=== PATIENT | female | born 1995 | race Caucasian/White ===

== ENCOUNTER 2016-06-18 09:44 | Emergency (ER) | payer OTHER ==
[2016-06-18] MEDS ORDERED: KETOROLAC 60 MG/2 ML VIAL IM STA (10:53)
--- NOTE | 2016-06-18 10:57 | ED ---
General Adult HPI - General Chief complaint: Recheck/Abnormal Lab/Rx Stated complaint: Pacemaker Issue Time Seen by Provider: 06/18/16 09:50 Source: patient, RN notes reviewed Mode of arrival: ambulatory Limitations: no limitations - History of Present Illness Initial comments: This is a 21-year-old female who presents emergency Department complaining of pain over her pacemaker. Patient states started 3 days ago and it's very sore to touch and it hurts when she moves her arm. Patient denies any anterior chest pain patient denies shortness of breath or difficulty breathing. Patient denies any palpations. Patient denies any headache patient denies numbness weakness per patient denies any redness to the her patient denies any arm swelling. Patient denies any recent fever or chills. - Related Data Home Medications Medication Instructions Recorded Confirmed Albuterol Inhaler [Ventolin Hfa 1 puff INHALATION RT-Q4H PRN 05/11/15 06/18/16 Inhaler] Albuterol Nebulized [Ventolin 2.5 mg INHALATION RT-Q6H PRN 05/11/15 06/18/16 Nebulized] Montelukast Sodium [Singulair] 10 mg PO HS 05/11/15 06/18/16 Mometasone/Formoterol [Dulera 100 2 puff INHALATION RT-BID 06/18/16 06/18/16 Mcg/5 Mcg Inhaler] Allergies Allergy/AdvReac Type Severity Reaction Status Date / Time peanut Allergy Anaphylaxis Verified 06/18/16 10:30 penicillinase [Penicillinase] Allergy Unknown Verified 06/18/16 10:30 Penicillins Allergy Unknown Verified 06/18/16 10:30 Review of Systems ROS Statement: Those systems with pertinent positive or pertinent negative responses have been documented in the HPI. ROS Other: All systems not noted in ROS Statement are negative. Past Medical History Past Medical History: Asthma, GERD/Reflux Additional Past Medical History / Comment(s): congential av blockage History of Any Multi-Drug Resistant Organisms: None Reported Past Surgical History: Adenoidectomy, Pacemaker, Tonsillectomy Additional Past Surgical History / Comment(s): mole removal Past Anesthesia/Blood Transfusion Reactions: No Reported Reaction Additional Past Anesthesia/Blood Transfusion Reaction / Comment(s): UNKNOWN FAMILY ANESTHESIA HX Past Psychological History: No Psychological Hx Reported Smoking Status: Current every day smoker Past Alcohol Use History: Occasional Additional Past Alcohol Use History / Comment(s): STARTED SMOKING AT AGE 16- SMOKE APPROX 4-5 CIG. PER DAY Past Drug Use History: Marijuana - Past Family History Mother Family Medical History: No Reported History Father Family Medical History: Hypertension General Exam - General Exam Comments Initial Comments: GENERAL: Patient is well-developed and well-nourished. Patient is nontoxic and well- hydrated and is in no acute distress. ENT: Neck is soft and supple. No significant lymphadenopathy is noted. Oropharynx is clear. Moist mucous membranes. EYES: The sclera were anicteric and conjunctiva were pink and moist. Extraocular movements were intact and pupils were equal round and reactive to light. Eyelids were unremarkable. PULMONARY: Unlabored respirations. Good breath sounds bilaterally. No audible rales rhonchi or wheezing was noted. CARDIOVASCULAR: There is a regular rate and rhythm without any murmurs gallops or rubs. Pacemaker site is not red but it is tender to palpation patient states this is the pain she came in for ABDOMEN: Soft and nontender with normal bowel sounds. No palpable organomegaly was noted. There is no palpable pulsatile mass. SKIN: Skin is clear with no lesions or rashes and otherwise unremarkable. NEUROLOGIC: Patient is alert and oriented x3. Cranial nerves II through XII are grossly intact. Motor and sensory are also intact. Normal speech, volume and content. Symmetrical smile. MUSCULOSKELETAL: Normal extremities with adequate strength and full range of motion. No lower extremity swelling or edema. No calf tenderness. LYMPHATICS: No significant lymphadenopathy is noted PSYCHIATRIC: Normal psychiatric evaluation. Limitations: no limitations Course Vital Signs 06/18/16 06/18/16 06/18/16 09:47 10:18 11:14 Temperature 97.3 F L Pulse Rate 88 64 Pulse Rate [ 75 Supine Apical] Respiratory 18 16 Rate Blood Pressure 119/65 102/60 O2 Sat by Pulse 98 99 Oximetry Medical Decision Making - Medical Decision Making EKG shows atrial sensed ventricular paced rhythm at 85 beats a minute GA interval is 128 QRS is 142 QT interval 446 QTC is 530. I spoke with Dr. Mcclelland he wanted the patient to have a chest x-ray a CBC and follow-up with him tomorrow in the office. Patient already has an appointment for tomorrow. Patient's chest x-ray showed no acute normalities. - Lab Data Result diagrams: 06/18/16 11:00 Lab Results 06/18/16 Range/Units 11:00 WBC 3.9 (3.8-10.6) k/uL RBC 4.78 (3.80-5.40) m/uL Hgb 14.4 (11.4-16.0) gm/dL Hct 43.0 (34.0-46.0) % MCV 89.9 (80.0-100.0) fL MCH 30.0 (25.0-35.0) pg MCHC 33.4 (31.0-37.0) g/dL RDW 12.3 (11.5-15.5) % Plt Count 141 L (150-450) k/uL Neutrophils % 41 % Lymphocytes % 41 % Monocytes % 7 % Eosinophils % 9 % Basophils % 1 % Neutrophils # 1.6 (1.3-7.7) k/uL Lymphocytes # 1.6 (1.0-4.8) k/uL Monocytes # 0.3 (0-1.0) k/uL Eosinophils # 0.4 (0-0.7) k/uL Basophils # 0.0 (0-0.2) k/uL Disposition Clinical Impression: Pain in pacemaker pocket Disposition: HOME SELF-CARE Condition: Good Additional Instructions: Patient should take Motrin 600 mg every 6 hours. Patient should follow-up with Dr. Mcclelland tomorrow . Time of Disposition: 11:47
[2016-06-18 11:14] LABS: Basophils % (A) 1 %; CH 30.6; CHCM 34.1; Eosinophils # (A) 0.4 k/uL (0-0.7); Eosinophils % (A) 9 %; HDW 2.11; HGB 14.4 gm/dL (11.4-16.0); Luc # (Auto) 0.07; Luc % (Auto) 2; Lymphocytes # (A) 1.6 k/uL (1.0-4.8); Lymphocytes % (A) 41 %; MCHC 33.4 g/dL (31.0-37.0); MCV 89.9 fL (80.0-100.0); Mean Platelet Volume 8.6; Monocytes # (A) 0.3 k/uL (0-1.0); Monocytes % (A) 7 %; Neutrophils # (A) 1.6 k/uL (1.3-7.7); Neutrophils % (A) 41 %; RBC 4.78 m/uL (3.80-5.40); RDW 12.3 % (11.5-15.5); WBC 3.9 k/uL (3.8-10.6); WBC (Perox) 3.82
[2016-06-18 11:15] VITALS: RESP 16
--- NOTE | 2016-06-18 11:17 | XR ---
EXAMINATION TYPE: XR chest 2V DATE OF EXAM: 06/18/2016 11:13 AM COMPARISON: Chest x-ray February 18, 2016. HISTORY: Chest pain today. TECHNIQUE: Frontal and lateral views of the chest are obtained. FINDINGS: There is no focal air space opacity, pleural effusion, or pneumothorax seen. The cardiac silhouette size is within normal limits. There is multilevel pacemaker present. S-shaped scoliosis is redemonstrated. IMPRESSION: No acute cardiopulmonary process. No significant change from prior.
[2016-06-18 11:55] VITALS: BP 97/60; PULSE 74; TEMP 97.1
== END 2016-06-18 11:55 | disposition home or self-care (01) ==
LOC: EC 09:44
DX: T82.847A Pain due to cardiac prosthetic devices, implants and grafts, initial encounter (principal); F17.210 Nicotine dependence, cigarettes, uncomplicated; Z88.0 Allergy status to penicillin; Z91.010 Allergy to peanuts; Z79.899 Other long term (current) drug therapy; J45.909 Unspecified asthma, uncomplicated
CPT/HCPCS: 99284; 96372; 36415; 93005; 85025; 71020; J1885

== ENCOUNTER 2016-09-27 20:22 | Emergency (ER) | payer OTHER ==
[2016-09-27 21:12] VITALS: RESP 16
--- NOTE | 2016-09-27 21:23 | ED ---
Chest Pain HPI - General Chief Complaint: Chest Pain Stated Complaint: Chest Pain- Sent by Med Exp Time Seen by Provider: 09/27/16 20:38 Source: patient Mode of arrival: wheelchair Limitations: no limitations - History of Present Illness Initial Comments: This patient is a 21-year-old woman who presents with complaint that she had onset of substernal and epigastric chest pain about 3 days ago while she was working at [employer]. She states the pain has been constant, she has not found any worsening or relieving factors, he has been severe since it started. Patient has not had any associated symptoms other than she noted some tingling of her left arm and hand. Patient denies diaphoresis, dyspnea, nausea or vomiting, palpitations, lightheadedness or syncope. MD Complaint: chest pain Onset/Timin -: days(s) Onset: other (While at work) Pain Location: substernal Pain Radiation: none Severity: severe Quality: tightness, aching Consistency: constant Improves With: nothing Worsens With: nothing Treatments Prior to Arrival: none - Related Data Home Medications Medication Instructions Recorded Confirmed Albuterol Inhaler [Ventolin Hfa 1 puff INHALATION RT-Q4H PRN 05/11/15 09/27/16 Inhaler] Albuterol Nebulized [Ventolin 2.5 mg INHALATION RT-Q6H PRN 05/11/15 09/27/16 Nebulized] Montelukast Sodium [Singulair] 10 mg PO DAILY 05/11/15 09/27/16 Ibuprofen [Motrin] 600 mg PO BID PRN 09/27/16 09/27/16 Allergies Allergy/AdvReac Type Severity Reaction Status Date / Time peanut Allergy Anaphylaxis Verified 09/27/16 20:40 Penicillins Allergy Anaphylaxis Verified 09/27/16 20:40 Review of Systems ROS Statement: Those systems with pertinent positive or pertinent negative responses have been documented in the HPI. ROS Other: All systems not noted in ROS Statement are negative. Constitutional: Denies: fever, chills Respiratory: Denies: cough, dyspnea Cardiovascular: Reports: as per HPI, chest pain. Denies: palpitations, edema, syncope Gastrointestinal: Denies: abdominal pain, nausea, vomiting Genitourinary: Denies: dysuria, hematuria Musculoskeletal: Denies: back pain Skin: Denies: rash Neurological: Denies: headache, weakness, numbness EKG Findings - EKG Comments: EKG Findings:: Twelve-lead EKG shows an atrial sensed, ventricular paced rhythm at a rate of 70 BPM. - EKG Results: EKG: normal axis, normal QRS, normal ST/T Past Medical History Past Medical History: Asthma, GERD/Reflux Additional Past Medical History / Comment(s): congential av blockage History of Any Multi-Drug Resistant Organisms: None Reported Past Surgical History: Adenoidectomy, Pacemaker, Tonsillectomy Additional Past Surgical History / Comment(s): mole removal Past Anesthesia/Blood Transfusion Reactions: No Reported Reaction Additional Past Anesthesia/Blood Transfusion Reaction / Comment(s): UNKNOWN FAMILY ANESTHESIA HX Past Psychological History: No Psychological Hx Reported Smoking Status: Current every day smoker Past Alcohol Use History: Occasional Additional Past Alcohol Use History / Comment(s): STARTED SMOKING AT AGE 16- SMOKE APPROX 4-5 CIG. PER DAY Past Drug Use History: Marijuana - Past Family History Mother Family Medical History: No Reported History Father Family Medical History: Hypertension General Exam Limitations: no limitations General appearance: alert, in no apparent distress Head exam: Present: atraumatic, normocephalic, normal inspection Eye exam: Present: normal appearance. Absent: scleral icterus, conjunctival injection ENT exam: Present: normal oropharynx Neck exam: Present: normal inspection, full ROM Respiratory exam: Present: normal lung sounds bilaterally. Absent: respiratory distress, wheezes, rales, rhonchi, stridor Cardiovascular Exam: Present: regular rate, normal rhythm, normal heart sounds. Absent: systolic murmur, diastolic murmur, rubs, gallop GI/Abdominal exam: Present: soft. Absent: distended, tenderness, guarding, rebound, mass Extremities exam: Present: normal inspection, normal capillary refill. Absent: pedal edema, calf tenderness Back exam: Present: normal inspection. Absent: CVA tenderness (R), CVA tenderness (L) Neurological exam: Present: alert Skin exam: Present: warm, dry, intact, normal color. Absent: rash Course Vital Signs 09/27/16 09/27/16 20:31 20:51 Temperature 97.8 F Pulse Rate 74 73 Respiratory 18 16 Rate Blood Pressure 121/64 114/64 O2 Sat by Pulse 99 97 Oximetry Disposition Clinical Impression: Chest pain Disposition: HOME SELF-CARE Condition: Good Instructions: Chest Pain (ED) Referrals: Ricardo Ford MD [Primary Care Provider] - 1-2 days Joanne Swanson MD [STAFF PHYSICIAN] - 1-2 days
[2016-09-27 21:34] LABS: Basophils % (A) 1 %; CHCM 35.3; Eosinophils # (A) 0.5 k/uL (0-0.7); Eosinophils % (A) 8 %; HDW 2.34; HGB 14.6 gm/dL (11.4-16.0); Luc # (Auto) 0.17; Luc % (Auto) 3; Lymphocytes # (A) 2.6 k/uL (1.0-4.8); Lymphocytes % (A) 42 %; MCH 31.4 pg (25.0-35.0); MCHC 35.6 g/dL (31.0-37.0); MCV 88.2 fL (80.0-100.0); Monocytes # (A) 0.4 k/uL (0-1.0); Monocytes % (A) 7 %; Neutrophils # (A) 2.5 k/uL (1.3-7.7); Neutrophils % (A) 40 %; RBC 4.65 m/uL (3.80-5.40); RDW 12.5 % (11.5-15.5); WBC 6.3 k/uL (3.8-10.6); WBC (Perox) 6.57
--- NOTE | 2016-09-27 21:37 | XR ---
EXAMINATION TYPE: XR chest 2V DATE OF EXAM: 09/27/2016 9:32 PM COMPARISON: 06/18/2016 HISTORY: Chest pain TECHNIQUE: Frontal and lateral views of the chest are obtained. FINDINGS: Heart and mediastinum are normal. Lungs are clear. Diaphragm is normal. There are chest le ads. There is left axillary pacemaker with the lead tips in the right ventricle. There is midthoracic dextroscoliosis. IMPRESSION: No active cardiopulmonary disease. Thoracic scoliosis. No change.
[2016-09-27 21:43] LABS: ALT 19 U/L (9-52); AST 13 U/L (14-36); Alkaline Phosphatase 60 U/L (38-126); Anion Gap 11 mmol/L; Blood Urea Nitrogen 12 mg/dL (7-17); Calcium 9.2 mg/dL (8.4-10.2); Carbon Dioxide 25 mmol/L (22-30); Chloride 105 mmol/L (98-107); Glucose 78 mg/dL (74-99); Magnesium 2.1 mg/dL (1.6-2.3); Non-African American GFR(MDRD) >60 (>60 ml/min/1.73 sqM); Sodium 141 mmol/L (137-145); Total Bilirubin 1.1 mg/dL (0.2-1.3); Total Protein 6.9 g/dL (6.3-8.2)
[2016-09-27 22:10] LABS: INR 1.2 (<1.1); Prothrombin Time 12.3 sec (9.0-12.0)
[2016-09-27 22:59] VITALS: BP 129/66; PULSE 60; TEMP 97.9
== END 2016-09-27 22:58 | disposition home or self-care (01) ==
LOC: EC 20:22
DX: R07.2 Precordial pain (principal); J45.909 Unspecified asthma, uncomplicated; F17.210 Nicotine dependence, cigarettes, uncomplicated; Z79.899 Other long term (current) drug therapy; Z88.0 Allergy status to penicillin; Z91.010 Allergy to peanuts
CPT/HCPCS: 36415; 71020; 80053; 83735; 84484; 85025; 85379; 85610; 85730; 93005; 99285

== ENCOUNTER 2017-01-08 19:14 | Emergency (ER) | payer OTHER ==
[2017-01-08 19:22] VITALS: BP 102/66; PULSE 78; RESP 18; TEMP 97.6
--- NOTE | 2017-01-08 19:33 | ED ---
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 She states is been going on for last 3 weeks. She states that the chest pain is worse with coughing and deep breathing. She states that her cough is nonproductive. She went to her primary doctor's office who do a mono test however she was never updated of the results. She denies any significant fevers but has been feeling chills. No neck pain or headaches. No nausea, vomiting, or diarrhea. No other complains. - Related Data Home Medications Medication Instructions Recorded Confirmed Albuterol Inhaler [Ventolin Hfa 1 puff INHALATION RT-Q4H PRN 05/11/15 09/27/16 Inhaler] Albuterol Nebulized [Ventolin 2.5 mg INHALATION RT-Q6H PRN 05/11/15 09/27/16 Nebulized] Montelukast Sodium [Singulair] 10 mg PO DAILY 05/11/15 09/27/16 Digoxin 250 mcg PO DAILY 01/08/17 01/08/17 Previous Rx's Medication Instructions Recorded Azithromycin [Zithromax Z-pack] 0 mg PO DIRECTED #6 tab 01/08/17 Benzonatate [Tessalon Perles] 100 mg PO TID PRN #15 cap 01/08/17 Allergies Allergy/AdvReac Type Severity Reaction Status Date / Time peanut Allergy Anaphylaxis Verified 01/08/17 19:53 Penicillins Allergy Anaphylaxis Verified 01/08/17 19:53 Review of Systems ROS Statement: Those systems with pertinent positive or pertinent negative responses have been documented in the HPI. ROS Other: All systems not noted in ROS Statement are negative. Past Medical History Past Medical History: Asthma, GERD/Reflux Additional Past Medical History / Comment(s): congential av blockage History of Any Multi-Drug Resistant Organisms: None Reported Past Surgical History: Adenoidectomy, Pacemaker, Tonsillectomy Additional Past Surgical History / Comment(s): mole removal Past Anesthesia/Blood Transfusion Reactions: No Reported Reaction Additional Past Anesthesia/Blood Transfusion Reaction / Comment(s): UNKNOWN FAMILY ANESTHESIA HX Past Psychological History: Anxiety, Bipolar, Depression Smoking Status: Current every day smoker Past Alcohol Use History: Occasional Past Drug Use History: Marijuana - Past Family History Mother Family Medical History: No Reported History Father Family Medical History: Hypertension General Exam - General Exam Comments Initial Comments: Constitutional: Awake alert Appears comfortable Head: Normocephalic atraumatic Eyes: no conjunctival injection No scleral icterus EOMI ENT: TMs clear bilaterally, oropharynx is mildly erythematous without exudate or edema, mild nasal mucosal edema and rhinorrhea Neck: No JVD Supple Heart: Regular rate rhythm normal S1-S2 no murmurs, there is tenderness to palpation along the costal margin bilaterally Lungs: Clear to auscultation bilaterally No wheezing No rales Abdomen: Soft nondistended nontender Extremities: Non edematous DP pulses intact Radial pulses intact Neuro: A&Ox3 No focal neurologic deficits Psych: Appropriate mood and affect Limitations: no limitations Course Vital Signs 01/08/17 19:18 Temperature 97.6 F Pulse Rate 78 Respiratory 18 Rate Blood Pressure 102/66 O2 Sat by Pulse 100 Oximetry EKG Findings - EKG Comments: EKG Findings:: EKG showing an atrial sensed paced rhythm with a rate of 67. No abnormal ST segment changes or T-wave inversions. QTC or 88. Other intervals are normal. QRS is prolonged due to pacemaker. No ectopy. Medical Decision Making - Medical Decision Making This is a 21-year-old female presents emergency room for cough and chest wall pain. Patient was given a dose of Toradol which improved her pain. This time I feel that she is suffering from an upper respiratory infection. I'm going to give her some Biaxin symptoms been going on for 3 weeks. I also gave her some Tessalon Perles for her cough. She is taken off work until she is improved. She can return emergency Department if she has any worsening or changing symptoms or questions were answered. Disposition Clinical Impression: URI (upper respiratory infection), Chest wall pain Disposition: HOME SELF-CARE Condition: Stable Instructions: Chest Pain (ED), Upper Respiratory Infection (ED) Prescriptions: Azithromycin [Zithromax Z-pack] 0 mg PO DIRECTED #6 tab Benzonatate [Tessalon Perles] 100 mg PO TID PRN #15 cap PRN Reason: Cough Referrals: Ricardo Ford MD [Primary Care Provider] - 1-2 days
--- NOTE | 2017-01-08 19:59 | XR ---
EXAMINATION TYPE: XR chest 2V DATE OF EXAM: 01/08/2017 COMPARISON: 09/27/2016 HISTORY: Chest pain TECHNIQUE: Frontal and lateral views of the chest are obtained. FINDINGS: There is no focal air space opacity. No evidence for pneumothorax. No pleural effusion. The cardiac silhouette size is within normal limits. The osseous structures are grossly intact. Pacer device is unchanged. IMPRESSION: 1. No acute cardiopulmonary process.
[2017-01-08] MEDS ORDERED: KETOROLAC 30 MG/ML 1 ML VIAL IM STA (20:02)
== END 2017-01-08 20:12 | disposition home or self-care (01) ==
LOC: EC 19:14
DX: J06.9 Acute upper respiratory infection, unspecified (principal); R07.89 Other chest pain; Q24.6 Congenital heart block; J45.909 Unspecified asthma, uncomplicated; F17.200 Nicotine dependence, unspecified, uncomplicated; Z95.0 Presence of cardiac pacemaker; Z79.899 Other long term (current) drug therapy; Z88.0 Allergy status to penicillin; Z91.010 Allergy to peanuts
CPT/HCPCS: 99283; 96372; 93005; 71020; J1885

== ENCOUNTER → 2017-02-20 | Outpatient (CLI) | payer OTHER ==
[2017-02-20 15:46] LABS: Basophils % (A) 1 %; CH 30.7; CHCM 32.6; Eosinophils # (A) 0.5 k/uL (0-0.7); Eosinophils % (A) 8 %; HCT 46.1 % (34.0-46.0); HDW 2.11; HGB 14.9 gm/dL (11.4-16.0); Luc # (Auto) 0.07; Luc % (Auto) 1; Lymphocytes % (A) 30 %; MCH 30.5 pg (25.0-35.0); MCHC 32.3 g/dL (31.0-37.0); MCV 94.7 fL (80.0-100.0); Mean Platelet Volume 8.3; Monocytes # (A) 0.4 k/uL (0-1.0); Monocytes % (A) 6 %; Neutrophils # (A) 3.5 k/uL (1.3-7.7); Neutrophils % (A) 54 %; RBC 4.86 m/uL (3.80-5.40); RDW 12.2 % (11.5-15.5); WBC 6.4 k/uL (3.8-10.6); WBC (Perox) 6.18
[2017-02-20 16:30] LABS: Erythrocyte Sedimentation Rate 2 mm/hr (0-20)
== END | disposition home or self-care (01) ==
LOC: LABWHC1 15:02
PROVIDERS: ATTEND Nurse Practitioner Adult Health
DX: I44.2 Atrioventricular block, complete (principal)
CPT/HCPCS: 36415; 85025; 85652; 86141

== ENCOUNTER → 2018-02-10 | Outpatient (CLI) | payer OTHER ==
--- NOTE | 2018-02-11 07:58 | US ---
EXAMINATION TYPE: US pelvis complete transvag DATE OF EXAM: 02/10/2018 COMPARISON: NONE CLINICAL HISTORY: R10.2 pelvic pain, Z97.5 Iud Placement. TECHNIQUE: . Transabdominal sonographic images of the pelvis were acquired. Transvaginal sonographi c images were medically necessary to better assess the following anatomy: Date of LMP: EXAM MEASUREMENTS: Uterus: 6.5 x 2.5 x 3.2 cm Endometrial Stripe: 0.3 cm Right Ovary: 1.9x 1.2 x 1.0 cm Left Ovary: 3.2 x 1.8 x 1.8 cm 1. Uterus: Anteverted wnl, IUD appears in postion 2. Endometrium: wnl 3. Right Ovary: wnl 4. Left Ovary: wnl 5. Bilateral Adnexa: wnl 6. Posterior cul-de-sac: wnl IMPRESSION: 1. Unremarkable appearing midline intrauterine device centrally located bridging the lower and upper uterine segments. 2. Physiologic ovarian follicles with no ovarian cysts identified. No endometrial thickening.
== END | disposition home or self-care (01) ==
LOC: RADUSWWP 15:34
PROVIDERS: ATTEND Obstetrics & Gynecology
DX: R10.2 Pelvic and perineal pain (principal); Z97.5 Presence of (intrauterine) contraceptive device
CPT/HCPCS: 76830; 76856

== ENCOUNTER 2018-07-11 23:41 | Emergency (ER) | payer OTHER ==
--- NOTE | 2018-07-12 01:33 | ED ---
General Adult HPI - General Chief complaint: Head Injury Stated complaint: TV fell on head Time Seen by Provider: 07/12/18 01:19 Source: patient Mode of arrival: wheelchair Limitations: no limitations - History of Present Illness Initial comments: Dictation was produced using [employer] dictation software. please excuse any grammatical, word or spelling errors. Chief Complaint: 23-year-old female multiple comorbidities presents with headache after head contusion. History of Present Illness: 3-year-old female she was at home when approximately 5 PM she hit her head. Patient states that a TV fell off a dresser hit her to her anterior forehead. Patient states that she was at home when her girlfriend came home and noticed that she seemed a little out of it. Patient does not recall that time. Patient then with the grocery store without any issues. She began complaining of some mild anterior head pain. Does complain of some mild neck pain as well. The ROS documented in this emergency department record has been reviewed and confirmed by me. Those systems with pertinent positive or negative responses have been documented in the HPI. All other systems are other negative and/or noncontributory. PHYSICAL EXAM: General Impression: Alert and oriented x3, not in acute distress HEENT: Normocephalic atraumatic, extra-ocular movements intact, pupils equal and reactive to light bilaterally, mucous membranes moist. Cardiovascular: Heart regular rate and rhythm, S1&S2 audible, no murmurs, rubs or gallops Chest: Lungs clear to auscultation bilaterally, no rhonchi, no wheeze, no rales Abdomen: Bowel sounds present, abdomen soft, non-tender, non-distended, no organomegaly Musculoskeletal: Pulses present and equal in all extremities, no peripheral edema Motor: Power 5/5 bilaterally, no focal deficits noted Neurological: CN II-XII grossly intact, no focal motor or sensory deficits noted Skin: Intact with no visualized rashes Psych: Normal affect and mood ED course: 23 yo female presents with a contusion after a TV fell on her. Vital signs upon arrival are within acceptable limits. No signs of external head injury except for some mild tenderness to palpation. Patient is or the emergency department for several hours with no change in medical status. Computed tomography scan of the head was obtained showing no acute intracranial process. CT C-spine is also negative. Patient's symptoms likely secondary to mild concussion. Patient told to avoid strenuous activity over the next 7 days. Still to put any stress situations. Patient should follow-up with primary care physician up she is understandable and agreeable to plan. Advised follow-up with primary care physician upon discharge. - Related Data Home Medications Medication Instructions Recorded Confirmed Albuterol Inhaler [Ventolin Hfa 1 puff INHALATION RT-Q4H PRN 05/11/15 07/12/18 Inhaler] Albuterol Nebulized [Ventolin 2.5 mg INHALATION RT-Q6H PRN 05/11/15 07/12/18 Nebulized] Digoxin 250 mcg PO DAILY 01/08/17 07/12/18 LORazepam [Ativan] 0.5 mg PO HS 07/12/18 07/12/18 Montelukast [Singulair] 10 mg PO HS 07/12/18 07/12/18 Allergies Allergy/AdvReac Type Severity Reaction Status Date / Time peanut Allergy Anaphylaxis Verified 07/12/18 00:11 Penicillins Allergy Anaphylaxis Verified 07/12/18 00:11 Review of Systems ROS Statement: Those systems with pertinent positive or pertinent negative responses have been documented in the HPI. ROS Other: All systems not noted in ROS Statement are negative. Past Medical History Past Medical History: Asthma, GERD/Reflux Additional Past Medical History / Comment(s): congential av blockage History of Any Multi-Drug Resistant Organisms: None Reported Past Surgical History: Adenoidectomy, Pacemaker, Tonsillectomy Additional Past Surgical History / Comment(s): mole removal Past Anesthesia/Blood Transfusion Reactions: No Reported Reaction Additional Past Anesthesia/Blood Transfusion Reaction / Comment(s): UNKNOWN FAMILY ANESTHESIA HX Type of Cardiac Device: Biventricular Pacemaker Device Placement Date:: 2016 Past Psychological History: Anxiety, Bipolar, Depression Smoking Status: Current every day smoker Past Alcohol Use History: Rare Past Drug Use History: Marijuana - Past Family History Mother Family Medical History: No Reported History Father Family Medical History: Hypertension General Exam Limitations: no limitations Course Vital Signs 07/12/18 00:06 Temperature 98.2 F Pulse Rate 67 Respiratory 16 Rate Blood Pressure 117/70 O2 Sat by Pulse 98 Oximetry Disposition Clinical Impression: Concussion Disposition: HOME SELF-CARE Condition: Good Instructions (If sedation given, give patient instructions): Concussion (ED) Is patient prescribed a controlled substance at d/c from ED?: No Referrals: Ricardo Ford MD [Primary Care Provider] - 1-2 days Time of Disposition: 03:36
--- NOTE | 2018-07-12 03:22 | CT ---
INDICATION: Pain TECHNIQUE: CT acquisition is performed through the brain and cervical spine. Sagittal and coronal reformatted images are provided. No IV contrast is administered. DOSE INFORMATION: CTDIvol 45.2 mGy; DLP 1205.5 mGy-cm. One or more of the following dose reduction techniques were used: automated exposure control, adjustment of the mA and/or kV according to patient size, use of iterative reconstruction technique. COMPARISON: None. FINDINGS: CT head: There is no evidence of acute intracranial hemorrhage or abnormal extra- axial fluid collection. There is no mass effect or midline shift. Sulci, ventricles, and basal cisterns are normal in size and configuration. The lyles-white matter differentiation is preserved. There is trace mucosal thickening in the posterior ethmoid air cells. The visualized paranasal sinuses and mastoid air cells are otherwise clear. The calvarium is intact. CT C-spine: There is mild reversal of the normal cervical lordosis. Vertebral body height and alignment are preserved. There is no evidence of acute fracture or subluxation. Disc spaces are preserved. Cervical spinal canal is adequately patent. The prevertebral soft tissues are normal. The visualized lung apices are clear. IMPRESSION: 1. No evidence of acute intracranial process. 2. No evidence of acute fracture in the cervical spine.
[2018-07-12 03:47] VITALS: BP 116/55; PULSE 73; RESP 18; TEMP 98.4
== END 2018-07-12 03:47 | disposition home or self-care (01) ==
LOC: EC 23:41
DX: S06.0X0A Concussion without loss of consciousness, initial encounter (principal); J45.909 Unspecified asthma, uncomplicated; F31.9 Bipolar disorder, unspecified; F41.9 Anxiety disorder, unspecified; F17.200 Nicotine dependence, unspecified, uncomplicated; Z79.899 Other long term (current) drug therapy; Z88.0 Allergy status to penicillin; Z91.010 Allergy to peanuts; Z95.0 Presence of cardiac pacemaker; W20.8XXA Other cause of strike by thrown, projected or falling object, initial encounter
CPT/HCPCS: 70450; 72125; 99283

== ENCOUNTER → 2019-04-26 | Day surgery (SDC) | payer OTHER ==
[~2019-04-26] MED LIST: IOPAMIDOL-250 50ML BTL IV ONE; SODIUM CHLORIDE 0.9% 1,000 ML IV SCH
[2019-04-26 11:26] VITALS: BP 129/60; PULSE 70; RESP 16; TEMP 97.8
--- NOTE | 2019-04-26 14:29 | P.PCN ---
Preoperative Diagnosis: Diagnosis Migration of the pacemaker generator and pre-erosion at the level of the breast/nipple with nipple retraction Cinefluoroscopy of the leads and the generator was performed This is reduction in the heel for the RV lead Hold the lead tips in stable position LV lead is stable and position and so is the right atrial lead There is definitely some backing out of the right atrial and right ventricular lead but not the LV lead as compared to previous cine films post implant Left upper extremity venogram was performed 50 mL dye was injected. Patent axillary and subclavian venous system along with a patent innominate and SVC The device was interrogated RV and LV lead impedances are stable Atrial pacing threshold 0.625 V at 0.4 ms P waves 2.8 mV pacing impedance 400 ohms RV pacing threshold 0.75 V at 0.4 ms R waves 6.1 mV and pacing impedance 460 ohms LV pacing threshold 1.25 V at 1.5 ms pacing impedance of 710 ohms The patient has an underlying rhythm. Third degree heart block with escape rhythm in the 50s Plan Patient needs revision of the pacemaker WITH relocation of pacemaker generator However the pacemaker generator is a day. To the breast tissue and nipple causing retraction of the nipple This would definitely require the assistance of a surgeon I called Dr. Ryan Kaufman and he will see the patient next week on Friday and will give me a call and then we will schedule this is a combined procedure in the operating room
== END ==
LOC: CATHEP 10:56
PROVIDERS: ATTEND Internal Medicine Clinical Cardiac Electrophysiology
DX: T82.897S Other specified complication of cardiac prosthetic devices, implants and grafts, sequela (principal); Q24.6 Congenital heart block; I42.0 Dilated cardiomyopathy; F17.210 Nicotine dependence, cigarettes, uncomplicated; Z88.0 Allergy status to penicillin; Z79.899 Other long term (current) drug therapy; Y83.1 Surgical operation with implant of artificial internal device as the cause of abnormal reaction of the patient, or of later complication, without mention of misadventure at the time of the procedure
CPT/HCPCS: 36005; 75820; 76000; 81025; Q9966

== ENCOUNTER → 2019-05-17 | Outpatient (CLI) | payer OTHER | END | disposition home or self-care (01) | LOC: LABPAT 16:05 | PROVIDERS: ATTEND Internal Medicine Clinical Cardiac Electrophysiology | DX: Z53.9 Procedure and treatment not carried out, unspecified reason (principal) ==

== ENCOUNTER → 2019-05-17 | Outpatient (CLI) | payer OTHER ==
[2019-05-17 16:56] LABS: HCT 44.4 % (34.0-46.0); MCH 30.8 pg (25.0-35.0); MCHC 33.9 g/dL (31.0-37.0); MCV 90.9 fL (80.0-100.0); Mean Platelet Volume 9.8; Platelet Count 181 k/uL (150-450); RBC 4.88 m/uL (3.80-5.40); RDW 12.1 % (11.5-15.5); WBC 7.5 k/uL (3.8-10.6)
[2019-05-18 00:35] LABS: African American GFR (CKD) 120.4 (60.0-200.0); Anion Gap 8.6 mmol/L (4.00-12.00); Calcium 9.2 mg/dL (8.7-10.3); Carbon Dioxide 26.4 mmol/L (21.6-31.8); Non-African American GFR(CKD) 103.9 (60.0-200.0); Potassium 4.1 mmol/L (3.5-5.5)
[2019-05-18 01:20] LABS: Digoxin 1.4 ng/mL (0.8-2.0)
== END | disposition home or self-care (01) ==
LOC: LABWHC1 16:07
PROVIDERS: ATTEND Physician Assistant
DX: R61 Generalized hyperhidrosis (principal); R53.83 Other fatigue
CPT/HCPCS: 36415; 80048; 80162; 84443; 84481; 85027

== ENCOUNTER 2019-05-20 11:42 | Day surgery (SDC) | payer OTHER ==
[2019-05-17 11:20] VITALS: BMI 22.6
[~2019-05-20 11:42] MED LIST changes: +CLINDAMYCIN 900 MG in DEXTROSE 5% IN WATER 50 ML IVPB ONE; +DEXAMETHASONE SOD PHOSPHATE 10 MG/ML 1 ML VIAL IV ONE; +HEPARIN SODIUM,PORCINE 5,000 UNIT/ML 1 ML VIAL SQ ONE; -IOPAMIDOL-250 50ML BTL IV ONE; +MIDAZOLAM 2 MG/2 ML VIAL IV PRN; +ONDANSETRON 4 MG/2 ML VIAL IVP ONE; +SCOPOLAMINE 1.5MG/72HR PATCH TRANSDERM ONE; -SODIUM CHLORIDE 0.9% 1,000 ML IV SCH
[2019-05-20] MEDS: LACTATED RINGERS 1,000 ML IV SCH ×2 (12:18→21:05)
[2019-05-20] MEDS ORDERED: LIDOCAINE 1% 20 ML VIAL (10MG/ML) FOR IV START INTRADERMA ONE (12:18)
[2019-05-20] MEDS ORDERED: CLINDAMYCIN 600 MG in SODIUM CHLORIDE 0.9% IRRIGATIO 250 ML IRRIGATION ONE (12:52)
[2019-05-20] MEDS ORDERED: SUCCINYLCHOLINE CHLORIDE 100 MG/5 ML SYR IV ONE (13:01)
[2019-05-20] MEDS ORDERED: VANCOMYCIN 1,000 MG VIAL ONE (13:01)
[2019-05-20] MEDS ORDERED: PROPOFOL 10 MG/ML 20 ML VIAL IV ONE (13:01)
[2019-05-20] MEDS ORDERED: MIDAZOLAM 2 MG/2 ML VIAL ONE (13:01)
[2019-05-20] MEDS ORDERED: ROCURONIUM BROMIDE 10 MG/ML 10 ML VIAL IV ONE (13:01)
[2019-05-20] MEDS ORDERED: fentaNYL (PF) 50 MCG/ML 2 ML AMP ONE (13:01)
[2019-05-20] MEDS ORDERED: BUPIVACAINE-EPI 0.5%-1:200,000 10 ML VIAL SQ ONE (14:12)
[2019-05-20] MEDS ORDERED: ACETAMINOPHEN TAB 325 MG TAB PO PRN (14:43)
[2019-05-20] MEDS: HYDROmorphone 0.5 MG/0.5 ML SYRINGE IVP PRN ×2 (14:54→15:00)
--- NOTE | 2019-05-20 15:28 | P.OP ---
Date of Procedure: 05/20/19 Procedure(s) Performed: PREOPERATIVE DIAGNOSIS: Pacemaker complications POSTOPERATIVE DIAGNOSIS: Same PROCEDURE: Mastotomy with exploration SURGEON: Shae EBL: 15 mL ANESTHESIA: General COMPLICATIONS: None OPERATIVE PROCEDURE: Patient place never table in the supine position with the patient was placed under general anesthesia. The left breast was prepped and draped sterilely. The previous pacemaker incision site was re-incised. I actually excised the scar in doing so. The subcutaneous tissues were divided both bluntly and using electrocautery. With the help of Dr. Johnson we identified the leads from the pacemaker and followed this down to the subareolar location. A small amount of serous fluid that was slightly cloudy was identified around the pacemaker itself. Cultures were taken 2. The pacemaker was freed up completely. Dr. Johnson then resecured the pacemaker to the left chest wall in the left infraorbital the current location. This was sewn down using an 0 silk stitch. The breast exploration site was irrigated with clindamycin saline mixture. The tract of the exploration was closed using up to 3-0 Vicryl sutures. After the pacemaker was evaluated the subcutaneous tissues were closed using both 201 3-0 Vicryl sutures. The skin was closed using a running 4-0 Monocryl stitch. Skin glue with tape was then utilized over the incision itself. DISPOSITION: Stable to recovery room
--- NOTE | 2019-05-20 15:35 | FL ---
EXAMINATION TYPE: FL guidance operating room DATE OF EXAM: 05/20/2019 CLINICAL HISTORY: Fluoroscopic documentation during relocation of a pacemaker TECHNIQUE: Fluoroscopy. COMPARISON: None. FINDINGS: Fluoroscopic guidance was provided during procedure performed by Dr. Kaufman. A total of 12 seconds of fluoroscopic time was utilized during the procedure and 2 spot images was acquired. IMPRESSION: As Above.
[2019-05-20] MEDS ORDERED: ACETAMINOPHEN IV (For NPO) 1,000 MG in EMPTY BAG 1 BAG IVPB ONE (16:00)
[2019-05-20] MEDS: HYDROcodone/APAP 5-325MG 1 EACH TAB PO PRN ×2 (16:26→19:44)
[2019-05-20] MEDS: CLINDAMYCIN 900 MG in DEXTROSE 5% IN WATER 50 ML IVPB SCH ×2 (19:34)
[2019-05-20] MEDS: IPRATROPIUM-ALBUTEROL 3 ML NEB INHALATION PRN (20:18)
[2019-05-20] MEDS ORDERED: MONTELUKAST 10 MG TAB PO SCH (21:00)
--- NOTE | 2019-05-20 21:02 | PCN ---
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 Recently there was migration of her generator, possibly traumatic. There was progressive caudal migration of the generator down into her breast at the level of the nipple with pre erosion. There was nipple retraction, also. She was evaluated by Dr. Kaufman. We brought her to the operating room at [facility] and Dr. Kaufman performed the breast surgery part of the procedure with mastotomy. I assisted him during the procedure and performed the electrophysiologic component of the procedure. Once the incision was made at the previous surgical site, fluoroscopically we tagged the course of the leads and dissection was carefully performed along the leads up to the generator. The generator was carefully removed from the breast tissue and interrogated. The battery voltage was normal and suggested a battery life of greater than 5 years. Atrial, RV and LV pacing thresholds were excellent and the pacing impedances were stable. The leads on inspection looked within normal limits. A new subfascial pocket was made in the subclavicular area and the generator was sewn to the muscle and the leads and the generator were placed in this pocket. Please refer to the breast surgical part of the procedure that was performed by Dr. Ryan Kaufman and dictated separately. The device was then programmed to DDDR at 50 to 130 bpm with short AV delay. Cinefluoroscopy was performed during the procedure to identify the position and the course of the leads as they traveled down to inside the breast tissue up to the nipple level. There was no skin dehiscence noted at the end of the procedure at the level of the nipple or in the breast tissue. Cultures were sent for serous liquid around the generator once it was removed from the breast tissue. IV antibiotics were administered perioperatively. The patient tolerated the procedure well without any acute complications. MMODL / IJN: [id number] /
[2019-05-21] MEDS: CLINDAMYCIN 900 MG in DEXTROSE 5% IN WATER 50 ML IVPB SCH ×6 (00:38→12:41)
[2019-05-21] MEDS: HYDROcodone/APAP 5-325MG 1 EACH TAB PO PRN ×3 (00:40→12:41)
[2019-05-21] MEDS: IPRATROPIUM-ALBUTEROL 3 ML NEB INHALATION PRN (08:21)
[2019-05-21] MEDS ORDERED: SERTRALINE 50 MG TAB PO SCH (09:00)
--- NOTE | 2019-05-21 10:27 | P.DS ---
<Adrianna Holt - Last Filed: 05/21/19 10:23> Providers Expected date of discharge: 05/21/19 Hospital Course: 24-year-old female who underwent mastotomy with exploration with Dr. Kaufman and revision of pacemaker with Dr. Johnson. Patient is doing well postoperatively without any immediate complications. Patient's control on oral medications. Vital signs are stable. She is stable for discharge home today. Please see EMR for further hospital course details Discharge diagnosis #1. Pacemaker displacement left breast, status post revision of pacemaker and mastotomy with exploration Nurse practitioner note has been reviewed by physician. Signing provider agrees with the documented findings, assessment, and plan of care. Plan - Discharge Summary Discharge Rx Participant: Yes New Discharge Prescriptions: New Hydrocodone/Acetaminophen [Deposit 5-325] 1 tab PO Q6HR PRN 3 Days #12 tab PRN Reason: Pain Discontinued Digoxin 250 mcg PO DAILY No Action Albuterol Inhaler [Ventolin Hfa Inhaler] 1 puff INHALATION RT-Q4H PRN PRN Reason: Wheezing Albuterol Nebulized [Ventolin Nebulized] 2.5 mg INHALATION RT-Q6H PRN PRN Reason: Shortness Of Breath Montelukast [Singulair] 10 mg PO HS Sertraline HCl [Zoloft] 50 mg PO QAM LORazepam [Ativan] 2 mg PO TID PRN PRN Reason: Anxiety Discharge Medication List Albuterol Inhaler [Ventolin Hfa Inhaler] 1 puff INHALATION RT-Q4H PRN 05/11/15 [History] Albuterol Nebulized [Ventolin Nebulized] 2.5 mg INHALATION RT-Q6H PRN 05/11/15 [History] Montelukast [Singulair] 10 mg PO HS 07/12/18 [History] Sertraline HCl [Zoloft] 50 mg PO QAM 04/26/19 [History] LORazepam [Ativan] 2 mg PO TID PRN 05/17/19 [History] Hydrocodone/Acetaminophen [Deposit 5-325] 1 tab PO Q6HR PRN 3 Days #12 tab 05/21/19 [Rx] Follow up Appointment(s)/Referral(s): Ryan Kaufman MD [Medical Doctor] - 06/02/19 2:15 pm Edilberto Mcclelland MD [STAFF PHYSICIAN] - 05/26/19 3:00 pm (Follow-up with the device clinic in one week Follow up with Dr. Mcclelland in 3 months or as previously scheduled) Patient Instructions/Handouts: Pacemaker (DC) Activity/Diet/Wound Care/Special Instructions: PATIENT EDUCATION MATERIAL Instructions following a heart rhythm device implant. 1. Keep dressing DRY for 5 DAYS. You may cover the area with Saran or Cling Wrap, prior to a shower. 2. The dressing will be removed in the Device Clinic at [facility]. Absorbable sutures were used to close the wound. 3. Avoid raising the left arm above the shoulder level. 4 week restriction 4. Avoid arm movements, like backscratching, rubbing the head, or pulling on a cord. 4 weeks restriction 5. Gentle range of motion movements of the shoulder, closest to the incision should be performed to avoid a frozen shoulder. (Pendulum exercises of the shoulder) 6. The opposite arm may be used freely. 7. Avoid driving for 7 days. 8. Avoid activities such as golfing, swimming, weed whacking, lifting more than 10 pounds weight, bowling, gymnastics and weight training/lifting. (6 weeks restriction) 9. Activities such as wood chopping with an axe, pull-ups in the gymnasium, power lifting, arc-welding, being close to home induction cooktops will always be a problem. 10. Arm sling is only a reminder not to raise the arm above the head. You do not need to keep the arm completely immobilized. Your free to move the arm and use it and for normal activities. In case of any problems, please call [facility] [place], @ [phone], Attention: Device Clinic Device clinic follow-up in 5 days Follow-up with primary warehouse handler in 2-3 months Discharge Disposition: HOME SELF-CARE <Ryan Kaufman - Last Filed: 05/21/19 16:07> Providers Attending physician: Ryan Kaufman Primary care physician: Stated None
[2019-05-21 11:21] VITALS: BP 100/63; PULSE 59; RESP 16; TEMP 98
== END 2019-05-21 15:10 | disposition home or self-care (01) ==
LOC: OR 11:42 → 1SOBS 14:50 → OR 05-21 15:10
PROVIDERS: ATTEND Surgery
DX: T82.847A Pain due to cardiac prosthetic devices, implants and grafts, initial encounter (principal); T82.121A Displacement of cardiac pulse generator (battery), initial encounter; Q24.6 Congenital heart block; J45.909 Unspecified asthma, uncomplicated; F17.200 Nicotine dependence, unspecified, uncomplicated; K21.9 Gastro-esophageal reflux disease without esophagitis; F41.9 Anxiety disorder, unspecified; F31.9 Bipolar disorder, unspecified; Z88.0 Allergy status to penicillin; Z79.899 Other long term (current) drug therapy; Z91.010 Allergy to peanuts
CPT/HCPCS: 19020; 94640 ×2; 33215; 33222; 81025; 87070; 87205; 87075; J2250; J3370; J1644; J1100; J2405; J3010; J0330; J2704; J1170; 33208